=== PATIENT | female | born 1965 | race Caucasian/White ===

== ENCOUNTER → 2020-12-19 | Outpatient (CLI) | payer OTHER ==
[2020-12-19 09:39] LABS: POTASSIUM 4.4 MMOL/L (3.6-5.0)
[2020-12-19 09:40] LABS: ALBUMIN 4.5 GM/DL (3.2-4.5); BILIRUBIN,TOTAL 0.4 MG/DL (0.1-1.0); CREATININE SERUM 0.73 MG/DL (0.60-1.30); TOTAL PROTEIN 7.4 GM/DL (6.4-8.2)
== END ==
LOC: LAB FS 07:41
PROVIDERS: ATTEND Family Medicine
DX: Z00.00 Encounter for general adult medical examination without abnormal findings (principal); M25.50 Pain in unspecified joint; E55.9 Vitamin D deficiency, unspecified; E53.8 Deficiency of other specified B group vitamins
CPT/HCPCS: 36415; 80053; 80061; 82306; 82607; 85652; 86431

== ENCOUNTER 2021-01-28 08:35 | Emergency (ER) | payer SELFPAY ==
[2021-01-28] MEDS ORDERED: LORazepam INJ 2 MG/ML (ATIVAN) VIAL IVP STA (09:10)
[2021-01-28] MEDS ORDERED: NS IV 1000 ML 1,000 ML IV STA (09:10)
[2021-01-28] MEDS ORDERED: LORazepam 0.5 MG (ATIVAN) TABLET PO STA (09:17)
--- NOTE | 2021-01-28 09:17 | ED General ---
General Chief Complaint: Cardiac/General Problems Stated Complaint: BLOOD PRESSURE Nursing Triage Note: Patient reports she had a colonoscopy yesterday due to positive cologuard test, states her blood pressure was high when it was checked prior to and after the procedure. She reports she developed a headache yesterday, states she took tylenol without any relief. She also reports she has been taking care of her and hurt her back, so she took an oxycodone this morning for that. She also reports a history of anxiety and states she has not taken her daily ativan yet today. She reports some chest pain and nausea as well. Source of Information: Patient History of Present Illness Date Seen by Provider: Jan 28, 2021 Time Seen by Provider: 08:40 Initial Comments 55-year-old female presenting with complaints of frontal headache x 2 days and concern for elevated blood pressure. She states she has been under a lot of extra stress and pressure recently. She had a frontal headache and thought maybe she was getting a sinus infection or issue related to that. Her had similar issues with a sinus type headache the day before, so she thought she was just coming down with a little viral illness or infection similar to what he had. She has been at home helping to take care of her who was recently injured. He is going through physical therapy. She has been having to help lift him which has aggravated sciatica of her left hip and low back. She also h ad a positive Cologuard test and went for a consult with Dr. Sparrow about colonoscopy. Her blood pressure was elevated to around 170/90 at the consult. She had been having increased back pain/sciatica pain yesterday. She did take one of her 's oxycodone to help with that back pain. She states that it was helping but was unsure if that had caused some of her elevated blood pressure. She also has anxiety which is longstanding and she takes Ativan 1 mg daily to help with that. She has not taken that dose for today. She notes that she checked her blood pressure again today and it was 160/105. When she took her to physical therapy she came here to the emergency department. She admits that she feels like she has been working herself up and becoming more anxious and having "panic attack" about the blood pressure and her headache. She reports intentionally not going to the internet to look up symptoms that were worrisome because she knew that would make everything worse for her. She has not consulted with her PCP about any of the issues she is having in the last few days. She rates her frontal headache currently as essentially gone now and pain in her left hip and sciatica area at a 4/10. Other than taking her 's oxycodone x1 pill yesterday for her back pain and Tylenol for the headache she denies any other cclc-feg-axftvde medications or cold and sinus medicines that might have contributed to elevating her blood pressure. Timing/Duration: 2-3 Days Severity: Moderate Associated Systoms: Chest Pain (pressure and feeling of anxiety); No Cough, No Diaphoresis; Fever/Chills (reports hot and cold flashes similar to when she has a panic attack), Headaches (frontal headache, worse yesterday than today); No Loss of Appetite, No Malaise; Nausea/Vomiting (nausea associated with anxiety/panic attack but denies emesis); No Rash, No Seizure, No Shortness of Air, No Syncope, No Weakness Allergies and Home Medications Allergies Coded Allergies: Sulfa (Sulfonamide Antibiotics) (Verified Allergy, Unknown, 01/28/21) aspirin (Verified Allergy, Unknown, 01/28/21) ibuprofen (Verified Allergy, Unknown, 01/28/21) Patient Home Medication List Home Medication List Reviewed: Yes Review of Systems Review of Systems Constitutional: see HPI; No diaphoresis; other (lightheaded sensation with changing positions and with panic attack) EENTM: other ("had floaters in vision this morning with frontal headache"); No ear discharge, No ear pain, No blurred vision, No eye pain, No vision loss, No epistaxis, No nose congestion, No throat pain, No throat swelling Respiratory: No cough, No dyspnea on exertion, No hemoptysis, No orthopnea, No short of breath, No stridor, No wheezing Cardiovascular: see HPI, edema (intermittent swelling in legs, especially if she is not very active); No syncope, No vascular heart diseas Gastrointestinal: No abdominal pain, No constipation, No diarrhea, No dysphagia, No hematemesis, No heartburn, No jaundice, No loss of appetite, No melena; nausea; No vomiting; other ("gurgling" sensation in stomach region this am) Genitourinary: No decreased output, No dysuria, No frequency, No hematuria, No incontinence, No pain Musculoskeletal: see HPI Skin: No change in color, No rash Psychiatric/Neurological: See HPI, Anxiety; Denies Numbness, Denies Paresthesia, Denies Seizure, Denies Tingling, Denies Tremors, Denies Weakness Hematologic/Lymphatic: Denies Blood Clots Past Lmtnstm-Neipyg-Emclyx Hx Patient Social History Tobacco Use?: No Substance use?: No Alcohol Use?: No Pt feels they are or have been: No Past Medical History Surgery/Hospitalization HX: Chronically elevated Sed Rate, Anxiety, Chronic sciatica left side Respiratory: No Cardiac: No Neurological: No Genitourinary: No Gastrointestinal: No Musculoskeletal: No Endocrine: No HEENT: No Cancer: No Psychosocial: Yes Anxiety Integumentary: No Family Medical History Reviewed and Corrections made CAD Over 55 Years Old, Other Conditions/Hx (Aortic Aneurysm for Mother) Physical Exam Vital Signs Vital Signs - First Documented 01/28/21 08:52 Temp 35.5 Pulse 148 Resp 23 B/P (MAP) 167/108 (127) Pulse Ox 100 O2 Delivery Room Air Capillary Refill : Less Than 3 Seconds Height, Weight, BMI Height: '" Weight: lbs. oz. kg; BMI Method: General Appearance: WD/WN, Anxious Eyes: Bilateral Eye PERRL, Bilateral Eye EOMI HEENT: PERRL/EOMI, TMs Normal, Normal ENT Inspection, Pharynx Normal, Moist Mucous Membranes; No Photophobia; Other (mild tenderness over maxillary sinuses but none over frontal sinuses. negative flores/raccoon sign. no CSF rhinorrhea/otorrhea) Neck: Full Range of Motion, Normal Inspection, Non Tender, Supple Respiratory: Chest Non Tender, Lungs Clear, Normal Breath Sounds, No Accessory Muscle Use, No Respiratory Distress Cardiovascular: No Edema, No Murmur, Normal Peripheral Pulses, Tachycardia Gastrointestinal: Normal Bowel Sounds, No Pulsatile Mass, Non Tender, Soft Rectal: Deferred Back: No CVA Tenderness Extremity: Normal Capillary Refill, Normal Inspection, No Calf Tenderness, No Pedal Edema Neurologic/Psychiatric: Alert, Oriented x3, No Motor/Sensory Deficits, property inspector II- XII Norm as Tested, Other (anxious) Skin: Normal Color, Warm/Dry Progress/Results/Core Measures Suspected Sepsis SIRS Temperature: Pulse: 148 Respiratory Rate: 23 Laboratory Tests 01/28/21 09:15: White Blood Count 6.6 Blood Pressure 167 /108 Mean: 127 Laboratory Tests 01/28/21 09:15: Creatinine 0.76, INR Comment 0.9, Platelet Count 290, Total Bilirubin 0.7 Results/Orders Lab Results Laboratory Tests Test 01/28/21 09:09 01/28/21 09:15 Range/Units Urine Color YELLOW Urine Clarity CLEAR Urine pH 7.0 5-9 Urine Specific [place] 1.015 L 1.016-1.022 Urine Protein NEGATIVE NEGATIVE Urine Glucose (UA) NEGATIVE NEGATIVE Urine Ketones NEGATIVE NEGATIVE Urine Nitrite NEGATIVE NEGATIVE Urine Bilirubin NEGATIVE NEGATIVE Urine Urobilinogen 0.2 < = 1.0 MG/DL Urine Leukocyte Esterase NEGATIVE NEGATIVE Urine RBC (Auto) NEGATIVE NEGATIVE Urine RBC NONE /HPF Urine WBC 0-2 /HPF Urine Squamous Epithelial Cells 2-5 /HPF Urine Crystals NONE /LPF Urine Bacteria NEGATIVE /HPF Urine Casts PRESENT /LPF Urine Hyaline Casts 0-2 H /LPF Urine Granular Casts 0-2 H /LPF Urine Mucus NEGATIVE /LPF Urine Culture Indicated NO White Blood Count 6.6 4.3-11.0 10^3/uL Red Blood Count 4.94 3.80-5.11 10^6/uL Hemoglobin 15.3 11.5-16.0 g/dL Hematocrit 44 35-52 % Mean Corpuscular Volume 90 80-99 fL Mean Corpuscular Hemoglobin 31 25-34 pg Mean Corpuscular Hemoglobin Concent 35 32-36 g/dL Red Cell Distribution Width 12.4 10.0-14.5 % Platelet Count 290 130-400 10^3/uL Mean Platelet Volume 10.7 9.0-12.2 fL Immature Granulocyte % (Auto) 0 % Neutrophils (%) (Auto) 59 42-75 % Lymphocytes (%) (Auto) 33 12-44 % Monocytes (%) (Auto) 6 0-12 % Eosinophils (%) (Auto) 1 0-10 % Basophils (%) (Auto) 1 0-10 % Neutrophils # (Auto) 3.9 1.8-7.8 X 10^3 Lymphocytes # (Auto) 2.2 1.0-4.0 X 10^3 Monocytes # (Auto) 0.4 0.0-1.0 X 10^3 Eosinophils # (Auto) 0.0 0.0-0.3 10^3/uL Basophils # (Auto) 0.1 0.0-0.1 10^3/uL Immature Granulocyte # (Auto) 0.0 0.0-0.1 10^3/uL Prothrombin Time 12.4 12.2-14.7 SEC INR Comment 0.9 0.8-1.4 Activated Partial Thromboplast Time 31 24-35 SEC Sodium Level 140 135-145 MMOL/L Potassium Level 3.8 3.6-5.0 MMOL/L Chloride Level 104 98-107 MMOL/L Carbon Dioxide Level 22 21-32 MMOL/L Anion Gap 14 5-14 MMOL/L Blood Urea Nitrogen 8 7-18 MG/DL Creatinine 0.76 0.60-1.30 MG/DL Estimat Glomerular Filtration Rate 79 BUN/Creatinine Ratio 11 Glucose Level 128 H 70-105 MG/DL Calcium Level 9.9 8.5-10.1 MG/DL Corrected Calcium 8.5-10.1 MG/DL Magnesium Level 1.8 1.6-2.4 MG/DL Total Bilirubin 0.7 0.1-1.0 MG/DL Aspartate Amino Transf (AST/SGOT) 18 5-34 U/L Alanine Aminotransferase (ALT/SGPT) 14 0-55 U/L Alkaline Phosphatase 84 40-136 U/L Troponin I < 0.30 <0.30 NG/ML Pro-B-Type Natriuretic Peptide 58.4 <75.0 PG/ML Total Protein 8.0 6.4-8.2 GM/DL Albumin 4.6 H 3.2-4.5 GM/DL My Orders Orders - PHUC GABRIEL MD Cbc With Automated Diff (01/28/21 09:10) Magnesium (01/28/21 09:10) Chest 1 View Ap/Pa Only (01/28/21 09:10) Ekg Tracing (01/28/21 09:10) Comprehensive Metabolic Panel (01/28/21 09:10) Protime With Inr (01/28/21 09:10) Partial Thromboplastin Time (01/28/21 09:10) Monitor-Rhythm Ecg Trace Only (01/28/21 09:10) Ed Iv/Invasive Line Start (01/28/21 09:10) Troponin I Fs (01/28/21 09:10) Probnp Fs (01/28/21 09:10) Ua Culture If Indicated (01/28/21 09:10) Ns Iv 1000 Ml (Sodium Chloride 0.9%) (01/28/21 09:10) Lorazepam Tablet (Ativan Tablet) (01/28/21 09:17) Lorazepam Tablet (Ativan Tablet) (01/28/21 09:19) Vital Signs/I&O 01/28/21 01/28/21 08:52 10:51 Temp 35.5 Pulse 148 82 Resp 23 22 B/P (MAP) 167/108 (127) 137/88 Pulse Ox 100 99 O2 Delivery Room Air Room Air Capillary Refill : Less Than 3 Seconds Blood Pressure Mean: 127 Progress Note #1: Progress Note Discussed with patient that her blood pressure is elevated but not to the point that we would emergently start her on blood pressure medicine from the emergency department. Certainly she would want testing to evaluate for medical conditions that might be contributing to her elevated blood pressure. Currently had the anxiety and stress as well as sciatica could be playing a role. She may still have some sinus issues with the recent weather changes. Patient declined having a CT scan of her head to evaluate further conditions that might be causing her frontal headache. She was agreeable to doing blood work, electrocardiogram, urinalysis and chest x-ray. Provided these tests look okay we will check in with Dr. Arnold's office to see if they had any further recommendations. We will monitor her heart rate and blood pressure while in the department. Since she does complain of some lightheaded sensation especially with changing position and with the panic attack as well as some tachycardia will try giving some IV fluids for hydration. Since she has not had her regular morning dose of Ativan will order the milligram of Ativan to help from anxiety and panic attack standpoint. Differential diagnosis includes stress and anxiety reaction, hypertension, renal disease, coronary artery disease, hepatic failure Progress Note #2: Progress Note Patient declined the 1 mg Ativan IV stating that she had to drive and felt like that would be too much although this is similar to the 1 mg p.o. that she reports taking daily. Changed the IV dose to 1 mg p.o. since she had reported that is what she takes at home each morning. However upon looking through the external med history she is prescribed 2 mg of Ativan twice a day and last received 60 pills or a 1 month supply on January 07. Electrocardiogram shows sinus rhythm and initially she was tachycardia on the cardiac gambling monitor in the 130-140 range on arrival. However she became more calm and relaxed especially after her arrived from physical therapy her heart rate did decrease down to around [address] elevation or ischemic changes noted on the electrocardiogram. There is no prior tracing available for comparison. Progress Note #3: Time: 09:41 Progress Note Blood count, coags, urinalysis are all stable without acute significant abnormality. Chest x-ray is clear without signs of infiltrate, effusion, acute vascular or cardiac abnormality. Heart rate is down to 80 bpm and sinus rhythm. Progress Note #4: Time: 10:41 Progress Note Chemistry panel had a mild elevation in glucose but considering she was not fasting that was not concerning at 124. She had normal cardiac enzymes. Her renal function and hepatic function were normal. Blood pressure 137/88 at discharge after patient was reassured and was more calm and relaxed. Discussed with Dr. Arnold and she advised that the patient had seen her nurse practitioner, Yarelis, and they would review the note and test results and reach out to the patient. currently no additional medicines and have her concentrate on relaxing and maximizing anxiety and stress management. Counseled pt on results and advised to follow up with clinic for continued concerns. Counseled on follow up and return precautions. ECG Initial ECG Impression Date: Jan 28, 2021 Initial ECG Impression Time: 09:10 Initial ECG Rate: 99 Initial ECG Rhythm: Normal Sinus Initial ECG Comparisson: No Previous ECG Available Comment Normal sinus rhythm with a heart rate of 99 bpm. KS interval [address] elevation. QT interval 355 ms with a QTc interval 456 ms. There is no prior tracing available for comparison. Diagnostic Imaging Diagonstic Imaging: Xray Plain Films/CT/US/NM/MRI: chest Comments [facility]. [place], [place] NAME: ANTOINETTE NEGRETE Jerry MED REC#: [id number] PT STATUS: REG ER : 1965 PHYSICIAN: PHUC GABRIEL MD ADMIT DATE: 01/28/21/ER FS Signed Date of Exam:01/28/21 CHEST 1 VIEW AP/PA ONLY INDICATION: Chest pain after colonoscopy Portable chest shows normal heart size and vascularity. The lungs are clear. There is no effusion or pneumothorax. No free air beneath the diaphragm is evident. There is no bony abnormality. IMPRESSION: Normal chest. Dictated by: Dictated on workstation # [id number] Dict: 01/28/21925 Trans: 01/28/21937 CV [id number] Interpreted by: MARBELLA VIDAL MD Electronically signed by: MARBELLA VIDAL MD 01/28/21937 Reviewed: Reviewed by Me Departure Impression Primary Impression: Elevated blood pressure reading without diagnosis of hypertension Additional Impressions: Sciatica of left side without back pain Frontal headache Anxiety about health Disposition: HOME, SELF-CARE Condition: Improved Departure-Patient Inst. Decision time for Depature: 10:44 Referrals: PRAVEENA ARNOLD MD (PCP/Family) Primary Care Physician Patient Instructions: Sciatica ED, Anxiety, Adult ED, Headache, Adult ED, Controlling Your Blood Pressure Through Lifestyle, DASH Diet, Checking Your Blood Pressure at Home Add. Discharge Instructions: Your tests looked okay here in the emergency department. No signs of acute injury or issues with heart, kidneys or liver. Check back with Dr. Arnold's office for continued concerns. Make sure you are taking your Ativan (Lorazepam) as needed for anxiety and stress and work with your providers about this. If you continue to have headache in your forehead you may want to try taking your blood pressure and keeping a log for the clinic to see if you need to be on a medicine for blood pressure in addition to anxiety medication. All discharge instructions reviewed with patient and/or family. Voiced understanding. PHUC GABRIEL MD Jan 28, 2021 09:17
[2021-01-28] MEDS ORDERED: LORazepam 1 MG (ATIVAN) TAB ONE (09:19)
[2021-01-28 09:20] LABS: BILIRUBIN,URINE NEGATIVE (NEGATIVE); CLARITY,URINE CLEAR; COLOR,URINE YELLOW; GLUCOSE, URINE (UA) NEGATIVE (NEGATIVE); KETONES,URINE NEGATIVE (NEGATIVE); LEUKOCYTE ESTERASE ,URINE NEGATIVE (NEGATIVE); NITRITE,URINE NEGATIVE (NEGATIVE); PROTEIN,URINE NEGATIVE (NEGATIVE)
[2021-01-28 09:26] LABS: BACTERIA,URINE NEGATIVE /HPF; HYALINE CASTS, URINE 0-2 /LPF; WBC,URINE 0-2 /HPF
[2021-01-28 09:27] LABS: GRANULAR CASTS,URINE 0-2 /LPF
[2021-01-28 09:27] LABS: HEMATOCRIT 44 % (35-52); HEMOGLOBIN 15.3 g/dL (11.5-16.0); MEAN CORPUSCULAR HEMOGLOBIN 31 pg (25-34); MEAN CORPUSCULAR HGB CONC 35 g/dL (32-36); MEAN CORPUSCULAR VOLUME 90 fL (80-99); WHITE BLOOD COUNT 6.6 10^3/uL (4.3-11.0)
[2021-01-28 09:28] LABS: BASOPHILS # (AUTO) 0.1 10^3/uL (0.0-0.1); BASOPHILS % (AUTO) 1 % (0-10); EOSINOPHILS % (AUTO) 1 % (0-10); LYMPHOCYTES # (AUTO) 2.2 X 10^3 (1.0-4.0); LYMPHOCYTES % (AUTO) 33 % (12-44); MEAN PLATELET VOLUME 10.7 fL (9.0-12.2); MONOCYTES # (AUTO) 0.4 X 10^3 (0.0-1.0); MONOCYTES % (AUTO) 6 % (0-12); NEUTROPHILS # (AUTO) 3.9 X 10^3 (1.8-7.8); NEUTROPHILS % (AUTO) 59 % (42-75); PLATELET COUNT 290 10^3/uL (130-400)
--- NOTE | 2021-01-28 09:29 | Diagnostic Imaging Report ---
INDICATION: Chest pain after colonoscopy Portable chest shows normal heart size and vascularity. The lungs are clear. There is no effusion or pneumothorax. No free air beneath the diaphragm is evident. There is no bony abnormality. IMPRESSION: Normal chest. Dictated by: Dictated on workstation # [id number]
[2021-01-28 09:35] LABS: INR 0.9 (0.8-1.4); PROTHROMBIN TIME PATIENT 12.4 SEC (12.2-14.7)
[2021-01-28 10:24] LABS: CARBON DIOXIDE 22 MMOL/L (21-32); CHLORIDE 104 MMOL/L (98-107); POTASSIUM 3.8 MMOL/L (3.6-5.0); SODIUM 140 MMOL/L (135-145)
[2021-01-28 10:25] LABS: ALANINE AMINOTRANSFERASE 14 U/L (0-55); ALBUMIN 4.6 GM/DL (3.2-4.5); ALKALINE PHOSPHATASE 84 U/L (40-136); BILIRUBIN,TOTAL 0.7 MG/DL (0.1-1.0); BUN/CREATININE RATIO 11; CALCIUM 9.9 MG/DL (8.5-10.1); CREATININE SERUM 0.76 MG/DL (0.60-1.30); GFR ESTIMATED 79; GLUCOSE 128 MG/DL (70-105); MAGNESIUM 1.8 MG/DL (1.6-2.4)
[2021-01-28 10:51] VITALS: BP 137/88
== END 2021-01-28 10:53 | disposition home or self-care (01) ==
LOC: EDUNIT# 08:35 → ER FS 08:41
DX: R03.0 Elevated blood-pressure reading, without diagnosis of hypertension (principal); M54.32 Sciatica, left side; R51.9 Headache, unspecified
CPT/HCPCS: 36415; 71045; 80053; 81000; 83735; 83880; 84484; 85025; 85610; 85730; 93005; 93041

== ENCOUNTER 2021-02-09 05:41 | Outpatient (CLI) | payer BC ==
[~2021-02-09] VITALS: Ht 157.5 cm; Wt 93.9 kg
[2021-02-09] MEDS ORDERED: LORA-405 SL (13:43)
== END 2021-02-09 14:24 | disposition home or self-care (01) ==
LOC: PREOP 05:41
PROVIDERS: ATTEND Surgery
DX: Z01.818 Encounter for other preprocedural examination (principal)

== ENCOUNTER 2021-02-16 07:21 | Day surgery (SDC) | payer BC ==
[~2021-02-16] VITALS: Ht 157.5 cm; Wt 93.9 kg
[~2021-02-16 07:21] MED LIST: LORA-405 SL
[2021-02-16] MEDS ORDERED: LACTATED RINGERS 1,000 ML IV ONE (07:27)
[2021-02-16] MEDS ORDERED: LACTATED RINGERS 1,000 ML IV STA (07:27)
[2021-02-16 07:43] VITALS: BP 145/99
[2021-02-16] MEDS ORDERED: MIDAZOLAM 2 MG/2 ML (VERSED) VIAL ONE (07:50)
[2021-02-16] MEDS ORDERED: PROPOFOL INJECTION 50 ML IV ONE ×2 (07:51→08:38)
--- NOTE | 2021-02-16 08:18 | Progress Note-Pre Operative ---
Pre-Operative Progress Note H&P Reviewed The H&P was reviewed, patient examined and no changes noted. Time Seen by Provider: 08:14 Date H&P Reviewed: Feb 16, 2021 Time H&P Reviewed: 08:14 Pre-Operative Diagnosis: + cologGREGORIO Blanchard DO Feb 16, 2021 08:18
[2021-02-16 08:55] VITALS: BP 91/50
[2021-02-16 09:00] VITALS: BP 88/53
--- NOTE | 2021-02-16 09:04 | Progress Note-Post Operative ---
Post-Operative Progess Note Surgeon (s)/[employer] (s) Surgeon GREGORIO WISDOM DO [employer]: EUGENE YoussefII Pre-Operative Diagnosis + cologuard Post-Operative Diagnosis Polyps Diverticula Int hemorrhoids Procedure & Operative Findings Date of Procedure 02/16/21 Procedure Performed/Findings Colonoscopy with snare polypectomy PROCEDURE NOTE: After informed consent was obtained, the patient was brought to the endoscopy suite, placed in bed in left lateral decubitus position. She was administered IV sedation by the FUSELAGE FRAMER who then monitored her vitals the entire time, heart rate, blood pressure and pulse ox and the scope was inserted, pushed all the way to about [address] in noted a small polyp in the Descending colon and elected to do a snare polypectomy to completely remove it and then continued up. Once in the cecum, took a picture of appendiceal orifice and then slowly withdrew the scope insufflating to look circumferentiallyt at the carrion starting in the cecum and up the ascending colon. Found a large flat polyp here and did another snare polypectomy. Continued up to the hepatic flexure, then down the transverse colon, splenic flexure, into the descending colon down in the sigmoid and then into the rectal vault. Retroflexed the scope and took a picture of the internal hemorrhoids. The patient tolerated the procedure. She was recovered in endoscopy suite. Anesthesia Type IV sedation by FUSELAGE FRAMER Estimated Blood Loss Estimated blood loss (mL): scant Specimens/Packing Specimens Removed Asc polyp Desc colon polyp GREGORIO WISDOM DO Feb 16, 2021 09:04
--- NOTE | 2021-02-16 09:05 | Endoscopy Discharge Instruct ---
Endo Procedure/Findings Findings 1.: Polyp 2.: Diverticulosis 3.: Internal Hemorrhoids Discharge Instructions - Activity: You might feel a little sleepy until tomorrow. This is due to the medicine you received to relax you. Until tomorrow, you should: NOT drive a car, operate machinery or power tools. NOT drink any alcoholic beverages. NOT make any important decisions or sign importortant papers. Do not return to work until tomorrow, unless otherwise instructed. Resume previous activities tomorrow. Diet: Start by taking liquids. If you tolerate liquids, advance to solid food. 1.: Colonscopy in 5 years Notify Physician - If you experience excessive bleeding, unusual abdominal pain, fever, or chest pain, contact your doctor immediately. GREGORIO WISDOM DO Feb 16, 2021 09:05
[2021-02-16 09:20] VITALS: BP 111/83
[2021-02-16 09:25] VITALS: BP 111/83
--- NOTE | 2021-02-16 11:38 | Anesthesia-General Post-Op ---
MAC Patient Condition Mental Status/LOC: Same as Preop Cardiovascular: Satisfactory Nausea/Vomiting: Absent Respiratory: Satisfactory Pain: Controlled Complications: Absent Post Op Complications Complications None Follow Up Care/Instructions Patient Instructions None needed. Anesthesiology Discharge Order Discharge Order Patient is doing well, no complaints, stable vital signs, no apparent adverse anesthesia problems. No complications reported per nursing. TONJA REYNOLDS CRNA Feb 16, 2021 11:38
== END 2021-02-16 09:25 | disposition home or self-care (01) ==
LOC: ENDO 07:21
PROVIDERS: ATTEND Surgery
DX: D12.2 Benign neoplasm of ascending colon (principal); D17.5 Benign lipomatous neoplasm of intra-abdominal organs; D12.4 Benign neoplasm of descending colon; K64.8 Other hemorrhoids; R19.5 Other fecal abnormalities; K57.30 Diverticulosis of large intestine without perforation or abscess without bleeding; Z79.899 Other long term (current) drug therapy; Z80.1 Family history of malignant neoplasm of trachea, bronchus and lung; Z80.41 Family history of malignant neoplasm of ovary; Z90.89 Acquired absence of other organs
CPT/HCPCS: 88305